=== PATIENT | male | born 1995 | race Caucasian/White ===

== ENCOUNTER 2022-02-21 07:21 | Inpatient (IN) | payer OTHER ==
[~2022-02-21] VITALS: Ht 195.6 cm; Wt 88.0 kg
[2022-02-21 08:32] LABS: COVID AG,FIA SOURCE NASOPHARYNGEAL
[2022-02-21 08:58] LABS: BASOPHILS % (AUTO) 0.3 % (0.0-2.0); EOSINOPHILS % (AUTO) 0.1 % (1.0-6.0); HEMATOCRIT 44.2 % (41-53); HEMOGLOBIN 15.2 g/dL (13.5-17.5); LYMPHOCYTES # (AUTO) 1.1 K/uL (1.0-4.8); LYMPHOCYTES % (AUTO) 14.6 % (22.0-44.0); MEAN CORPUSCULAR HEMOGLOBIN 29.8 pg (26.0-34.0); MEAN CORPUSCULAR HGB CONC 34.5 G/dL (31.0-37.0); MEAN CORPUSCULAR VOLUME 87 fL (80-100); MONOCYTES # (AUTO) 0.4 K/uL (0.1-1.0); MONOCYTES % (AUTO) 4.9 % (2.0-9.0); NEUTROPHILS # (AUTO) 6.2 K/uL (1.8-7.7); NEUTROPHILS % (AUTO) 80.1 % (40.0-70.0); PLATELET COUNT (AUTO) 236 K/uL (150-450); RED BLOOD CELL COUNT(AUTO) 5.11 MIL/uL (4.50-5.90); RED CELL DISTRIBUTION WIDTH 12.8 % (11.5-14.5)
[2022-02-21 09:04] LABS: ANION GAP 6 mmol/L (8-16); CALCIUM, TOTAL 10.2 mg/dL (8.8-10.5); CARBON DIOXIDE 30 mmol/L (22-29); CHLORIDE 102 mmol/L (98-107); CREATININE 0.89 mg/dL (0.60-1.30); GLOMERULAR FILTR. RATE CALC > 60 mL/min (>60); GLUCOSE,RANDOM 106 mg/dL (70-110); POTASSIUM 3.8 mmol/L (3.5-5.1); SODIUM SERUM 138 mmol/L (136-145); UREA NITROGEN, BLOOD 23 mg/dL (7-18)
[2022-02-21 09:10] LABS: ALANINE AMINOTRANSFERASE 21 U/L (12-78); ALBUMIN 4.6 g/dL (3.4-5.0); ALKALINE PHOSPHATASE 65 U/L (46-116); ASPARTATE AMINOTRANSFERASE 19 U/L (15-37); BILIRUBIN,TOTAL 0.5 mg/dL (0.1-1.0)
[2022-02-21] MEDS ORDERED: SODIUM CHLORIDE 0.9% 1,000 ML IV ONE (09:30)
[2022-02-21] MEDS ORDERED: ONDANSETRON HCL 4 MG/2 ML VIAL IVP ONE (09:30)
[2022-02-21] MEDS ORDERED: ACETAMINOPHEN 325 MG TABLET PO PRN (10:45)
[2022-02-21] MEDS ORDERED: MAGNESIUM HYDROXIDE SUSPENSION 30 ML UDCUP PO PRN (10:45)
[2022-02-21] MEDS ORDERED: BISACODYL 10 MG RECTAL RECTAL SUPPOSITORY PR PRN (10:45)
[2022-02-21] MEDS: MAGNESIUM SULFATE 2 GM, MVI, ADULT NO.1 WITH VIT K 10 ML, THIAMINE 100 MG, FOLIC ACID 1... IV ONE ×10 (11:21→12:34)
[2022-02-21] MEDS: ONDANSETRON HCL 4 MG/2 ML VIAL IVP PRN ×2 (11:39→17:00)
[2022-02-21 12:14] VITALS: BP 138/84
[2022-02-21 15:14] VITALS: BP 119/68
[2022-02-21] MEDS: HEPARIN SODIUM,PORCINE 5,000 UNITS/ML VIAL SQ SCH (16:00)
[2022-02-21 19:35] VITALS: BP 121/62
[2022-02-21] MEDS: DOCUSATE SODIUM 100 MG CAPSULE PO SCH (21:00)
[2022-02-21 23:50] VITALS: BP 118/62
[2022-02-22] MEDS: ONDANSETRON HCL 4 MG/2 ML VIAL IVP PRN ×2 (00:41→10:52)
[2022-02-22 04:07] VITALS: BP 130/78
[2022-02-22 07:37] VITALS: BP 122/73
[2022-02-22 07:37] LABS: BASOPHILS % (AUTO) 0.5 % (0.0-2.0); EOSINOPHILS % (AUTO) 0.1 % (1.0-6.0); HEMATOCRIT 44.3 % (41-53); HEMOGLOBIN 15.4 g/dL (13.5-17.5); LYMPHOCYTES # (AUTO) 1.5 K/uL (1.0-4.8); LYMPHOCYTES % (AUTO) 11.9 % (22.0-44.0); MEAN CORPUSCULAR HEMOGLOBIN 29.7 pg (26.0-34.0); MEAN CORPUSCULAR HGB CONC 34.6 G/dL (31.0-37.0); MEAN CORPUSCULAR VOLUME 86 fL (80-100); MONOCYTES # (AUTO) 0.9 K/uL (0.1-1.0); MONOCYTES % (AUTO) 7.5 % (2.0-9.0); NEUTROPHILS # (AUTO) 10.1 K/uL (1.8-7.7); PLATELET COUNT (AUTO) 264 K/uL (150-450); RED BLOOD CELL COUNT(AUTO) 5.17 MIL/uL (4.50-5.90)
[2022-02-22 07:52] LABS: ALANINE AMINOTRANSFERASE 12 U/L (12-78); ALBUMIN 4.3 g/dL (3.4-5.0); ALKALINE PHOSPHATASE 63 U/L (46-116); ANION GAP 6 mmol/L (8-16); ASPARTATE AMINOTRANSFERASE 14 U/L (15-37); BILIRUBIN,TOTAL 0.7 mg/dL (0.1-1.0); CALCIUM, TOTAL 9.6 mg/dL (8.8-10.5); CARBON DIOXIDE 34 mmol/L (22-29); CHLORIDE 97 mmol/L (98-107); CREATININE 1.08 mg/dL (0.60-1.30); GLOMERULAR FILTR. RATE CALC > 60 mL/min (>60); GLUCOSE,RANDOM 117 mg/dL (70-110); SODIUM SERUM 137 mmol/L (136-145); TOTAL PROTEIN, SERUM 8.7 g/dL (6.4-8.2); UREA NITROGEN, BLOOD 22 mg/dL (7-18)
[2022-02-22 07:55] LABS: POTASSIUM 2.9 mmol/L (3.5-5.1)
[2022-02-22] MEDS: HEPARIN SODIUM,PORCINE 5,000 UNITS/ML VIAL SQ SCH ×3 (08:00→16:00)
[2022-02-22] MEDS: DOCUSATE SODIUM 100 MG CAPSULE PO SCH ×2 (09:00→19:58)
[2022-02-22] MEDS: PANTOPRAZOLE SODIUM 40 MG DR TABLET PO SCH (09:00)
[2022-02-22] MEDS ORDERED: POTASSIUM CHLORIDE 20 MEQ ER TABLET PO PRN (10:15)
[2022-02-22] MEDS ORDERED: MAGNESIUM SULFATE 2 GM, MVI, ADULT NO.1 WITH VIT K 10 ML, THIAMINE 100 MG, FOLIC ACID 1... IV ONE ×5 (10:15)
[2022-02-22] MEDS: POTASSIUM CHL 10 MEQ/WATER 50 ML IV PRN ×4 (10:52→21:52)
[2022-02-22 12:03] VITALS: BP 134/76
[2022-02-22] MEDS: LORazepam 2 MG/ML VIAL IVP PRN ×2 (14:06→20:25)
[2022-02-22 15:54] VITALS: BP 141/79
[2022-02-22 19:10] VITALS: BP 153/85
[2022-02-22 23:28] VITALS: BP 124/83
[2022-02-23] MEDS: POTASSIUM CHL 10 MEQ/WATER 50 ML IV PRN (00:04)
[2022-02-23] MEDS: HEPARIN SODIUM,PORCINE 5,000 UNITS/ML VIAL SQ SCH ×4 (00:04→23:37)
[2022-02-23] MEDS ORDERED: SODIUM CHLORIDE 0.9% 500 ML IV ONE (03:25)
[2022-02-23] MEDS ORDERED: SODIUM CHLORIDE 0.9% 1,000 ML ONE (03:26)
[2022-02-23] MEDS: LORazepam 2 MG/ML VIAL IVP PRN (03:37)
[2022-02-23 03:55] VITALS: BP 132/78
[2022-02-23 04:08] LABS: AMPHET/METH SCREEN,URINE NEGATIVE (NEGATIVE); BARBITURATE SCREEN, URINE NEGATIVE (NEGATIVE); BENZODIAZEPINES SCREEN,URINE NEGATIVE (NEGATIVE); CANNABINOID SCREEN,URINE NEGATIVE (NEGATIVE); COCAINE SCREEN,URINE NEGATIVE (NEGATIVE); METHADONE SCREEN, URINE NEGATIVE (NEGATIVE); OPIATE SCREEN,URINE NEGATIVE (NEGATIVE)
[2022-02-23 04:14] LABS: PHENCYCLIDINE SCREEN,URINE NEGATIVE (NEGATIVE)
[2022-02-23 08:00] VITALS: BP 147/79
[2022-02-23] MEDS: DOCUSATE SODIUM 100 MG CAPSULE PO SCH ×2 (09:00→20:03)
[2022-02-23] MEDS: ONDANSETRON HCL 4 MG/2 ML VIAL IVP PRN (10:24)
[2022-02-23] MEDS: PANTOPRAZOLE SODIUM 40 MG DR TABLET PO SCH (10:34)
[2022-02-23] MEDS: LORazepam 1 MG TABLET PO PRN ×3 (10:34→23:37)
[2022-02-23 11:36] VITALS: BP 122/77
[2022-02-23 15:26] VITALS: BP 141/78
[2022-02-23 20:03] VITALS: BP 132/84
[2022-02-23] MEDS: ZOLPIDEM TARTRATE 5 MG TABLET PO PRN (20:04)
[2022-02-23 23:41] VITALS: BP 137/82
[2022-02-24 04:10] VITALS: BP 139/86
[2022-02-24 07:05] LABS: PHOSPHORUS 3.5 mg/dL (2.5-4.9)
[2022-02-24 07:31] VITALS: BP 134/79
[2022-02-24] MEDS: HEPARIN SODIUM,PORCINE 5,000 UNITS/ML VIAL SQ SCH ×3 (08:00→23:24)
[2022-02-24] MEDS: LORazepam 1 MG TABLET PO PRN ×2 (08:11→19:48)
[2022-02-24] MEDS: DOCUSATE SODIUM 100 MG CAPSULE PO SCH ×2 (08:11→19:49)
[2022-02-24] MEDS: PANTOPRAZOLE SODIUM 40 MG DR TABLET PO SCH (08:11)
[2022-02-24] MEDS: MULTIVITAMINS, THERAPEUTIC TABLET PO SCH (08:11)
[2022-02-24] MEDS: ONDANSETRON HCL 4 MG/2 ML VIAL IVP PRN (08:47)
[2022-02-24 10:46] VITALS: BP 128/77
[2022-02-24 14:45] VITALS: BP 121/75
[2022-02-24 16:37] VITALS: BP 121/80
[2022-02-24 19:48] VITALS: BP 127/68
[2022-02-24] MEDS: ZOLPIDEM TARTRATE 5 MG TABLET PO PRN (19:50)
[2022-02-25 04:13] VITALS: BP 132/80
[2022-02-25 07:52] VITALS: BP 125/67
[2022-02-25] MEDS: HEPARIN SODIUM,PORCINE 5,000 UNITS/ML VIAL SQ SCH ×2 (08:55→15:48)
[2022-02-25] MEDS: PANTOPRAZOLE SODIUM 40 MG DR TABLET PO SCH (08:56)
[2022-02-25] MEDS: MULTIVITAMINS, THERAPEUTIC TABLET PO SCH (08:56)
[2022-02-25] MEDS: DOCUSATE SODIUM 100 MG CAPSULE PO SCH ×2 (08:56→20:51)
[2022-02-25] MEDS ORDERED: ALPRAZolam 0.5 MG TABLET PO PRN (12:45)
[2022-02-25 16:07] VITALS: BP 130/76
[2022-02-25 20:00] VITALS: BP 123/66
[2022-02-25] MEDS: ZOLPIDEM TARTRATE 5 MG TABLET PO PRN (20:52)
[2022-02-26 04:53] VITALS: BP 116/67
[2022-02-26 07:49] VITALS: BP 116/67
[2022-02-26] MEDS: PANTOPRAZOLE SODIUM 40 MG DR TABLET PO SCH (08:24)
[2022-02-26] MEDS: DOCUSATE SODIUM 100 MG CAPSULE PO SCH (08:24)
[2022-02-26] MEDS: MULTIVITAMINS, THERAPEUTIC TABLET PO SCH (08:24)
[2022-02-26] MEDS: HEPARIN SODIUM,PORCINE 5,000 UNITS/ML VIAL SQ SCH ×3 (08:25→15:59)
== END 2022-02-26 16:30 | DRG 392 ==
LOC: EMS 07:26 → 5N 11:20 → 6S 02-24 16:15
PROVIDERS: ADMIT Internal Medicine; ATTEND Internal Medicine
DX: K29.20 Alcoholic gastritis without bleeding (principal); R65.10 Systemic inflammatory response syndrome (SIRS) of non-infectious origin without acute organ dysfunction; F11.93 Opioid use, unspecified with withdrawal; F10.139 Alcohol abuse with withdrawal, unspecified; E87.6 Hypokalemia; F15.10 Other stimulant abuse, uncomplicated; Z20.822 Contact with and (suspected) exposure to COVID-19; Y90.9 Presence of alcohol in blood, level not specified; F17.210 Nicotine dependence, cigarettes, uncomplicated
CPT/HCPCS: 80053; 83735; 84100; 84132; 85025; 99285; G0480; J1644; J2060; J2405; J3411; J3475; J3480; J3490; J7030; J7040